=== PATIENT | female | born 1955 | race Two or more races ===

== ENCOUNTER 2023-02-03 05:23 | Inpatient (IN) | payer MEDICARE, OTHER ==
[~2023-02-03] VITALS: Ht 162.6 cm; Wt 79.1 kg
[2023-02-03] MEDS ORDERED: BUPIVACAINE 0.5 % PF 150 MG/30 ML VIAL ONE (06:06)
[2023-02-03] MEDS ORDERED: POLYMYXIN B SULFATE 500,000 UNITS ONE (06:06)
[2023-02-03] MEDS ORDERED: ANESTHESIA TRAY IN PYXIS 1 EA TRAY MC ONE (06:21)
[2023-02-03] MEDS ORDERED: TRANEXAMIC ACID 1,000 MG/10 ML VIAL ONE (06:27)
[2023-02-03] MEDS ORDERED: FENTANYL PF 100MCG/2ML AMPUL ONE (06:27)
[2023-02-03] MEDS ORDERED: FAMOTIDINE/PF INJ 20 MG/2 ML VIAL IV ONE (06:27)
[2023-02-03] MEDS ORDERED: ROPIVACAINE HCL 0.5% 5 MG/ML 30ML VIAL ONE (06:27)
[2023-02-03] MEDS ORDERED: Magnesium 1 GM/2 ML VIAL ONE (06:27)
[2023-02-03] MEDS ORDERED: ROCURONIUM BROMIDE 50 MG/5 ML ONE (06:28)
[2023-02-03] MEDS ORDERED: TRANEXAMIC ACID 3,000 MG in SODIUM CHLORIDE IRRIG SOLUTION 70 ML IR ONE (06:30)
[2023-02-03] MEDS ORDERED: LABETALOL HCL IV 100MG VIAL ONE (06:37)
[2023-02-03] MEDS ORDERED: NALOXONE IVP PRN (07:00)
[2023-02-03] MEDS ORDERED: ONDANSETRON HCL/PF 4 MG/2 ML VIAL IV PRN (07:00)
[2023-02-03] MEDS ORDERED: diphenhydrAMINE HCL 25 MG CAPSULE PO PRN (07:00)
[2023-02-03] MEDS ORDERED: BISACODYL SUPP (10 MG) 10 MG/SUPP.RECT SUPP.RECT RC PRN ×2 (07:00→09:00)
[2023-02-03] MEDS ORDERED: CLONIDINE HCL 0.1 MG TABLET PO PRN (07:00)
[2023-02-03] MEDS ORDERED: MENTHOL/CETYLPYRD (CEPACOL) 1 LOZ LOZENGE PO PRN (07:00)
[2023-02-03] MEDS ORDERED: oxyCODONE IR immediate release 5 MG PO PRN (07:00)
[2023-02-03] MEDS ORDERED: MAG HYDROX/AL HYDROX/SIMETH 30 ML UDC PO PRN (08:30)
[2023-02-03] MEDS: DOCUSATE SODIUM 100 MG CAPSULE PO SCH ×2 (09:00→17:48)
[2023-02-03] MEDS ORDERED: ACETAMINOPHEN 325 MG TABLET PO PRN (09:00)
[2023-02-03] MEDS ORDERED: HYDROCODONE/APAP 5/325MG TABLET PO PRN ×2 (09:00→15:30)
[2023-02-03] MEDS ORDERED: SENNOSIDES 8.6 MG TABLET PO PRN (09:00)
[2023-02-03] MEDS ORDERED: ONDANSETRON HCL/PF 4 MG/2 ML VIAL IVP PRN (09:00)
[2023-02-03] MEDS ORDERED: DOCUSATE SODIUM 250 MG CAPSULE PO PRN (09:00)
[2023-02-03] MEDS ORDERED: ZOLPIDEM TARTRATE 5 MG TABLET PO PRN (09:00)
[2023-02-03] MEDS ORDERED: MEPERIDINE25 MG SYR 25 MG/ML VIAL ONE (09:01)
[2023-02-03] MEDS ORDERED: HYDR50TA4 PO (09:57)
[2023-02-03] MEDS ORDERED: ENAL20TA18 PO (09:57)
[2023-02-03] MEDS ORDERED: METF-440 PO (09:57)
[2023-02-03] MEDS ORDERED: ASPI-1169 PO (09:57)
[2023-02-03] MEDS ORDERED: PANT40TA2 PO (09:57)
[2023-02-03 10:30] VITALS: BP 155/96; TEMP 98.1; O2SAT 98
[2023-02-03] MEDS: ASPIRIN 325 MG TABLET PO SCH (12:50)
[2023-02-03] MEDS: ANCEF 1 GM/50 ML D5W IV SCH ×4 (15:24→23:05)
[2023-02-03] MEDS: IV D5/0.45 NACL 1,000 ML IV PRN (15:24)
[2023-02-03 16:00] VITALS: BP 129/88; TEMP 99; O2SAT 97
[2023-02-03] MEDS ORDERED: HYDROCODONE/APAP 5/325MG TABLET PO ONE (17:30)
[2023-02-03 20:00] VITALS: BP 136/83; TEMP 98.5; O2SAT 92
[2023-02-03] MEDS: PANTOPRAZOLE 40 MG TABLET.DR PO SCH (21:39)
[2023-02-03] MEDS: HYDROCODONE/APAP 10/325MG TABLET PO PRN (22:07)
[2023-02-03] MEDS: HYDROMORPHONE 1 MG/1 ML DISP.SYRIN IV PRN (23:40)
[2023-02-04] MEDS: HYDROMORPHONE 1 MG/1 ML DISP.SYRIN IV PRN ×6 (02:42→23:55)
[2023-02-04] MEDS: IV D5/0.45 NACL 1,000 ML IV PRN ×2 (04:25→16:38)
[2023-02-04] MEDS: HYDROCODONE/APAP 10/325MG TABLET PO PRN ×5 (05:07→20:10)
[2023-02-04 08:00] VITALS: BP 162/106; TEMP 98.6; O2SAT 97
[2023-02-04] MEDS: DOCUSATE SODIUM 100 MG CAPSULE PO SCH ×2 (08:33→16:20)
[2023-02-04] MEDS: ASPIRIN 325 MG TABLET PO SCH (08:33)
[2023-02-04 11:55] LABS: BASOPHILS # (AUTO) 0.1 K/uL (0.0-0.2); BASOPHILS % (AUTO) 0.4 % (0.0-2.0); EOSINOPHILS % (AUTO) 0.2 % (0.0-6.0); HEMATOCRIT 41 % (33-45); HEMOGLOBIN 13.5 g/dL (11.5-14.8); LYMPHOCYTES # (AUTO) 3.6 K/uL (0.8-4.8); LYMPHOCYTES % (AUTO) 26.9 % (20.0-44.0); MEAN CORPUSCULAR HEMOGLOBIN 28 PG (26.0-33.0); MEAN CORPUSCULAR HGB CONC 33 g/dl (31.0-36.0); MEAN CORPUSCULAR VOLUME 85 fL (82-100); MONOCYTES # (AUTO) 1.4 K/uL (0.1-1.30); MONOCYTES % (AUTO) 10.9 % (2.0-12.0); NEUTROPHILS # (AUTO) 8.2 K/uL (1.8-8.9); NEUTROPHILS % (AUTO) 61.6 % (43.0-81.0); PLATELET COUNT (AUTO) 281 K/uL (150-450); RED BLOOD CELL COUNT(AUTO) 4.81 MIL/uL (4.0-5.2); RED CELL DISTRIBUTION WIDTH 14.5 % (11.5-15.0); WHITE BLOOD COUNT (AUTO) 13.3 K/uL (4.3-11.0)
[2023-02-04 12:48] LABS: CALCIUM, SERUM 8.4 mg/dL (8.5-10.1); CREATININE 0.7 mg/dL (0.6-1.3); POTASSIUM 4.1 mmol/L (3.5-5.1)
[2023-02-04 16:00] VITALS: BP 121/80; TEMP 98.8; O2SAT 98
[2023-02-04 20:00] VITALS: BP 134/77; TEMP 97.6; O2SAT 96
[2023-02-04] MEDS: PANTOPRAZOLE 40 MG TABLET.DR PO SCH (21:38)
[2023-02-05] MEDS: HYDROCODONE/APAP 10/325MG TABLET PO PRN ×5 (01:10→18:51)
[2023-02-05] MEDS: IV D5/0.45 NACL 1,000 ML IV PRN ×2 (01:31→14:47)
[2023-02-05 05:53] LABS: BASOPHILS % (AUTO) 0.7 % (0.0-2.0); EOSINOPHILS % (AUTO) 1.7 % (0.0-6.0); HEMATOCRIT 38 % (33-45); HEMOGLOBIN 12.4 g/dL (11.5-14.8); LYMPHOCYTES % (AUTO) 29.8 % (20.0-44.0); MEAN CORPUSCULAR HEMOGLOBIN 28 PG (26.0-33.0); MEAN CORPUSCULAR HGB CONC 33 g/dl (31.0-36.0); MEAN CORPUSCULAR VOLUME 86 fL (82-100); MONOCYTES % (AUTO) 13.4 % (2.0-12.0); NEUTROPHILS % (AUTO) 54.4 % (43.0-81.0); PLATELET COUNT (AUTO) 219 K/uL (150-450); RED CELL DISTRIBUTION WIDTH 14.3 % (11.5-15.0); WHITE BLOOD COUNT (AUTO) 9.3 K/uL (4.3-11.0)
[2023-02-05 05:54] LABS: BASOPHILS # (AUTO) 0.1 K/uL (0.0-0.2); EOSINOPHILS # (AUTO) 0.2 K/uL (0.0-0.7); LYMPHOCYTES # (AUTO) 2.8 K/uL (0.8-4.8); MONOCYTES # (AUTO) 1.2 K/uL (0.1-1.30); NEUTROPHILS # (AUTO) 5.1 K/uL (1.8-8.9)
[2023-02-05 06:14] LABS: CALCIUM, SERUM 8.1 mg/dL (8.5-10.1); CREATININE 0.6 mg/dL (0.6-1.3)
[2023-02-05] MEDS ORDERED: PANTOPRAZOLE 40 MG TABLET.DR PO SCH (07:30)
[2023-02-05] MEDS: HYDROMORPHONE 1 MG/1 ML DISP.SYRIN IV PRN ×4 (07:57→20:13)
[2023-02-05 08:00] VITALS: BP 143/81; TEMP 98.6; O2SAT 100
[2023-02-05] MEDS ORDERED: HYDROCHLOROTHIAZIDE 50 MG TABLET PO SCH (09:00)
[2023-02-05] MEDS ORDERED: ASPIRIN 81 MG TAB.CHEW PO SCH (09:00)
[2023-02-05] MEDS: ASPIRIN 325 MG TABLET PO SCH (09:20)
[2023-02-05] MEDS: DOCUSATE SODIUM 100 MG CAPSULE PO SCH ×2 (09:21→18:11)
[2023-02-05] MEDS: ENALAPRIL MALEATE (10 MG) 10 MG TABLET PO SCH (09:21)
[2023-02-05] MEDS ORDERED: ASPI-992 PO (11:51)
[2023-02-05] MEDS ORDERED: ACET325T53 PO (11:51)
[2023-02-05] MEDS ORDERED: HYDR25TA4 PO (11:51)
[2023-02-05] MEDS ORDERED: DOCU100C36 PO (11:51)
[2023-02-05] MEDS ORDERED: HYDR-3980 PO (11:51)
[2023-02-05] MEDS ORDERED: MAGNESIUM HYDROXIDE 30 ML UDC PO ONE (15:11)
[2023-02-05] MEDS ORDERED: MAGNESIUM HYDROXIDE 30 ML UDC PO PRN (15:30)
[2023-02-05] MEDS: SENNOSIDES 8.6 MG TABLET PO SCH ×2 (16:43→17:00)
[2023-02-05 20:00] VITALS: BP_SYST 135; BP_SYST 149; BP_DIAS 71; TEMP 99; TEMP 99.5; O2SAT 95; O2SAT 96
[2023-02-05] MEDS: PANTOPRAZOLE 40 MG TABLET.DR PO SCH (22:11)
[2023-02-06] MEDS: HYDROMORPHONE 1 MG/1 ML DISP.SYRIN IV PRN ×5 (00:40→18:26)
[2023-02-06 06:10] LABS: BASOPHILS # (AUTO) 0.1 K/uL (0.0-0.2); EOSINOPHILS # (AUTO) 0.3 K/uL (0.0-0.7); EOSINOPHILS % (AUTO) 2.9 % (0.0-6.0); HEMATOCRIT 36 % (33-45); HEMOGLOBIN 11.9 g/dL (11.5-14.8); LYMPHOCYTES # (AUTO) 2.7 K/uL (0.8-4.8); MEAN CORPUSCULAR HEMOGLOBIN 28 PG (26.0-33.0); MEAN CORPUSCULAR HGB CONC 33 g/dl (31.0-36.0); MEAN CORPUSCULAR VOLUME 84 fL (82-100); MONOCYTES # (AUTO) 1.1 K/uL (0.1-1.30); MONOCYTES % (AUTO) 11.5 % (2.0-12.0); NEUTROPHILS # (AUTO) 5.5 K/uL (1.8-8.9); NEUTROPHILS % (AUTO) 56.6 % (43.0-81.0); PLATELET COUNT (AUTO) 234 K/uL (150-450); RED BLOOD CELL COUNT(AUTO) 4.24 MIL/uL (4.0-5.2); RED CELL DISTRIBUTION WIDTH 14.2 % (11.5-15.0); WHITE BLOOD COUNT (AUTO) 9.7 K/uL (4.3-11.0)
[2023-02-06 07:00] VITALS: BP 139/77; TEMP 99.1; O2SAT 96
[2023-02-06 07:17] LABS: CALCIUM, SERUM 8.6 mg/dL (8.5-10.1); CREATININE 0.6 mg/dL (0.6-1.3); POTASSIUM 3.7 mmol/L (3.5-5.1)
[2023-02-06] MEDS: DOCUSATE SODIUM 100 MG CAPSULE PO SCH ×2 (08:15→16:40)
[2023-02-06] MEDS: SENNOSIDES 8.6 MG TABLET PO SCH ×2 (08:15→16:40)
[2023-02-06] MEDS: ASPIRIN 325 MG TABLET PO SCH (08:15)
[2023-02-06] MEDS: ENALAPRIL MALEATE (10 MG) 10 MG TABLET PO SCH (08:17)
[2023-02-06] MEDS: HYDROCHLOROTHIAZIDE 25 MG TABLET PO SCH (08:31)
[2023-02-06] MEDS: HYDROCODONE/APAP 10/325MG TABLET PO PRN ×3 (10:43→20:42)
[2023-02-06] MEDS ORDERED: LACTULOSE 10 G/15 ML UDC (PYXIS) PO ONE (14:30)
[2023-02-06] MEDS ORDERED: BISACODYL SUPP (10 MG) 10 MG/SUPP.RECT SUPP.RECT RC PRN (14:30)
[2023-02-06 16:00] VITALS: BP 126/71; TEMP 98.3; O2SAT 96
[2023-02-06 20:00] VITALS: BP 133/74; TEMP 98; O2SAT 97
[2023-02-06] MEDS: PANTOPRAZOLE 40 MG TABLET.DR PO SCH (21:10)
[2023-02-07] MEDS: HYDROMORPHONE 1 MG/1 ML DISP.SYRIN IV PRN ×3 (00:57→15:48)
[2023-02-07] MEDS: HYDROCODONE/APAP 10/325MG TABLET PO PRN (05:53)
[2023-02-07 06:55] LABS: BASOPHILS # (AUTO) 0.1 K/uL (0.0-0.2); BASOPHILS % (AUTO) 0.5 % (0.0-2.0); EOSINOPHILS # (AUTO) 0.2 K/uL (0.0-0.7); EOSINOPHILS % (AUTO) 2.3 % (0.0-6.0); HEMATOCRIT 37 % (33-45); HEMOGLOBIN 12.3 g/dL (11.5-14.8); LYMPHOCYTES # (AUTO) 2.5 K/uL (0.8-4.8); LYMPHOCYTES % (AUTO) 25.5 % (20.0-44.0); MEAN CORPUSCULAR HEMOGLOBIN 28 PG (26.0-33.0); MEAN CORPUSCULAR HGB CONC 33 g/dl (31.0-36.0); MEAN CORPUSCULAR VOLUME 85 fL (82-100); MONOCYTES # (AUTO) 1.2 K/uL (0.1-1.30); MONOCYTES % (AUTO) 12.3 % (2.0-12.0); NEUTROPHILS # (AUTO) 5.9 K/uL (1.8-8.9); NEUTROPHILS % (AUTO) 59.4 % (43.0-81.0); PLATELET COUNT (AUTO) 292 K/uL (150-450); RED BLOOD CELL COUNT(AUTO) 4.38 MIL/uL (4.0-5.2); RED CELL DISTRIBUTION WIDTH 13.9 % (11.5-15.0); WHITE BLOOD COUNT (AUTO) 9.9 K/uL (4.3-11.0)
[2023-02-07 07:17] LABS: CALCIUM, SERUM 9.1 mg/dL (8.5-10.1); CREATININE 0.7 mg/dL (0.6-1.3); POTASSIUM 3.9 mmol/L (3.5-5.1)
[2023-02-07 08:00] VITALS: BP 116/74; TEMP 98.4
[2023-02-07] MEDS: SENNOSIDES 8.6 MG TABLET PO SCH ×2 (08:17→17:07)
[2023-02-07] MEDS: ASPIRIN 325 MG TABLET PO SCH (08:17)
[2023-02-07] MEDS: DOCUSATE SODIUM 100 MG CAPSULE PO SCH ×2 (08:17→17:07)
[2023-02-07] MEDS: ENALAPRIL MALEATE (10 MG) 10 MG TABLET PO SCH (09:11)
[2023-02-07 09:12] VITALS: BP 116/74
[2023-02-07] MEDS: HYDROCHLOROTHIAZIDE 25 MG TABLET PO SCH (09:12)
== END 2023-02-07 18:25 | disposition home health service (06) | DRG 470 ==
LOC: DS 05:23 → MED 05:24
PROVIDERS: ADMIT Internal Medicine; ATTEND Nurse Practitioner Acute Care
PROC: 0SRC0J9 Replacement of Right Knee Joint with Synthetic Substitute, Cemented, Open Approach (ICD-10-PCS; principal; 2023-02-03)
DX: M17.11 Unilateral primary osteoarthritis, right knee (principal); E11.9 Type 2 diabetes mellitus without complications; E66.9 Obesity, unspecified; Z68.29 Body mass index [BMI] 29.0-29.9, adult; E78.5 Hyperlipidemia, unspecified; I10 Essential (primary) hypertension; E83.51 Hypocalcemia; D72.829 Elevated white blood cell count, unspecified; Z79.01 Long term (current) use of anticoagulants; Z79.84 Long term (current) use of oral hypoglycemic drugs
CPT/HCPCS: 36415; 80048-TC; 82962-TC; 85025-TC; 87081-TC; 88305-TC; 88311-TC; 97112-TC; 97116-TC; 97530-TC; 97760-TC; A4217; A4223; C1713; C1776; G0378; J0690; J1100; J1170; J2175; J2370; J2405; J2704; J2765; J2795; J3010; J3475; J3490; J7030; J7050; J7060; L1830; Q0163